=== PATIENT | male | born 1940 | race Caucasian/White ===

== ENCOUNTER 2019-03-07 13:00 | Emergency (ER) | payer OTHER ==
[~2019-03-07] VITALS: Ht 188 cm; Wt 108.9 kg
[~2019-03-07 13:00] MED LIST: MUCINEX DM1 TAB.SR . PO
[2019-03-07] MEDS ORDERED: NAPR500T14 PO (15:24)
[2019-03-07] MEDS ORDERED: SKELAXIN800 MG PO (15:24)
== END 2019-03-07 17:40 | disposition home or self-care (01) ==
LOC: ER
DX: M54.5 Low back pain (principal)

== ENCOUNTER 2023-02-22 10:52 | Emergency (ER) | payer OTHER ==
[~2023-02-22] VITALS: Ht 188 cm; Wt 99.8 kg
[~2023-02-22 10:52] MED LIST changes: +NAPR500T14 PO; +SKELAXIN800 MG PO
[2023-02-22] MEDS ORDERED: LIPITOR20 MG PO (11:39)
[2023-02-22] MEDS ORDERED: ADVIL DUAL ACT1 EACH PO (19:55)
[2023-02-22] MEDS ORDERED: TRAMADOL HCL E100 MG PO (19:55)
== END 2023-02-22 20:17 | disposition home or self-care (01) ==
LOC: ER 10:53
DX: S22.32XA Fracture of one rib, left side, initial encounter for closed fracture (principal); W19.XXXA Unspecified fall, initial encounter; Y93.9 Activity, unspecified; Y92.9 Unspecified place or not applicable; Y99.9 Unspecified external cause status

== ENCOUNTER 2023-02-24 15:36 | Emergency (ER) | payer OTHER ==
[~2023-02-24] VITALS: Ht 188 cm; Wt 99.8 kg
[~2023-02-24 15:36] MED LIST changes: +ADVIL DUAL ACT1 EACH PO; +LIPITOR20 MG PO; +TRAMADOL HCL E100 MG PO
[2023-02-24] MEDS ORDERED: LIPITOR20 MG PO (17:04)
[2023-02-24 22:51] LABS: HEMOGLOBIN 14.1 g/dL (13-16.00); MEAN CELL VOLUME 87.4 fL (80.0-100.00); MEAN CORPUSCULAR HGB CONC 34.4 g/dl (32.0-36.0); PLATELET COUNT 206 K/uL (150-450); RED BLOOD COUNT 4.69 M/uL (4.00-6.00); RED CELL DISTRIBUTION WIDTH 13.7 % (11.5-14.5)
[2023-02-24 23:14] LABS: INR 1.01; PARTIAL THROMBOPLASTIN TIME 29.4 SECONDS (22.0-34.0); PROTHROMBIN TIME 10.6 SECONDS (9.0-11.5)
[2023-02-24 23:16] LABS: CALCIUM 9.2 mg/dL (8.5-10.1); CREATININE SERUM 0.94 mg/dL (0.70-1.30); GFR 77.02; POTASSIUM 4.01 mEq/L (3.5-5.1)
[2023-02-24 23:55] LABS: PH,URINE 5.5 (5.0-8.0); URINE APPEARANCE Clear; URINE BILIRRUBIN Negative (NEGATIVE); URINE BLOOD Negative; URINE COLOR Dark Yellow; URINE GLUCOSE Negative (NEGATIVE); URINE LEUKOCYTE Trace; URINE NITRATE Negative
[2023-02-24 23:58] LABS: ABG PH 7.418 (7.35-7.45); ABG PO2 80.5 mmHg (80-100); ABG pCO2 39.9 mmHg (35-45); BASE EXCESS 0.7 mmol/l; BICARBONATE 25.2 mmol/l (23-25); Tco2 26.4 mmol/l
[2023-02-24 23:58] LABS: URINE BACTERIA 26.4 uL (0.0-1933); URINE EPITHELIAL CELLS 3.7 uL (0.0-38.8); URINE RBC 5.6 uL (0.0-20.8); URINE WBC 3.8 uL (0.0-23.2)
[2023-02-24 23:59] LABS: allen test SATISFACTORY; o2 21 %; puncture site RADIAL RIGHT
[2023-02-25 00:24] LABS: URINE PROTEIN 100 (NEGATIVE)
== END 2023-02-25 00:28 | disposition home or self-care (01) ==
LOC: ER 15:37
PROVIDERS: Nurse Practitioner Family
DX: S22.32XA Fracture of one rib, left side, initial encounter for closed fracture (principal); S27.898A Other injury of other specified intrathoracic organs, initial encounter; W19.XXXA Unspecified fall, initial encounter; Y93.89 Activity, other specified; Y92.89 Other specified places as the place of occurrence of the external cause; Y99.8 Other external cause status; Z20.822 Contact with and (suspected) exposure to COVID-19

== ENCOUNTER 2023-03-31 03:56 | Inpatient (IN) | payer OTHER ==
[~2023-03-31] VITALS: Ht 188 cm; Wt 95.3 kg
--- NOTE | 2023-03-31 04:15 | NUR ---
PTE. ALERTA Y ORIENTADO X3, EN AMBULANCIA, PARAMEDICOS REFIEREN PTE. EN LA NOCHE DE ESVIN PRESENTO VOMITOS, Y PRESIONES BAJAS. PTE. REFIERE QUE INGIRIO ALIMENTOS QUE SOSPECHA PUEDE SER LA CAUSA DE VOMITOS. SE MIDEN S/V Y SE UBICA.
[2023-03-31] MEDS ORDERED: FAMOtidine 10 MG/ML (4ML VIAL) IV STA (04:24)
[2023-03-31] MEDS ORDERED: ONDANSETRON HCL 2 MG/ML VIAL IV STA (04:24)
[2023-03-31] MEDS ORDERED: MEPERIDINE HCL/PF 25 MG/ML VIAL IM STA (04:25)
[2023-03-31] MEDS ORDERED: 0.9 % SODIUM CHLORIDE 500 ML IV STA (04:25)
--- NOTE | 2023-03-31 04:35 | NUR ---
SE ORIENTA PTE SOBRE TX MEDICO EL CUAL REFIERE ENTENDER.SE LE EXTRAEN MUESTRAS BAJO MEDIDAS ASEPTICAS,SE CANALIZA Y SE ADMINISTRA MEDICAMENTOS,SE NOTIFICA CT PENDIENTE.
[2023-03-31 05:15] LABS: HEMATOCRIT 49.8 % (39.0-48.0); HEMOGLOBIN 17.2 g/dL (13-16.00); MEAN CELL VOLUME 86.5 fL (80.0-100.00); MEAN CORPUSCULAR HEMOGLOBIN 29.8 pg (27.00-32.0); MEAN CORPUSCULAR HGB CONC 34.5 g/dl (32.0-36.0); PLATELET COUNT 217 K/uL (150-450); RED BLOOD COUNT 5.76 M/uL (4.00-6.00); RED CELL DISTRIBUTION WIDTH 13.3 % (11.5-14.5)
[2023-03-31 05:29] LABS: ALBUMIN 4.1 gm/dL (3.4-5.0); BILIRUBIN TOTAL 1.09 mg/dL (0.3-1.2); CALCIUM 9.9 mg/dL (8.5-10.1); CREATININE SERUM 1.05 mg/dL (0.70-1.30); GFR 67.79; GLOBULINA 3.8 G/DL (2.4-3.5); POTASSIUM 4.58 mEq/L (3.5-5.1); TOTAL PROTEIN 7.9 gm/dL (6.4-8.2)
--- NOTE | 2023-03-31 07:18 | NUR ---
SE RECIBE PTE ALERTA Y ORIENTADO X3 EN JESSICA BAJA CON BARANDAS ELEVDAS EN COMPANAI DE FAMILIAR. CANALIZADO EN BRAZO DERECHO CON ANGIO #18 PATENTE ML DE EDEMA Y ENROJECIMIENTO. RECIBIENDO .9NSS BAJANDO A 80ML/HR. PENDIENTE RESULTADO DE CT. SE ORIENTA A NOTIFICAR CAMBIOS.
--- NOTE | 2023-03-31 07:55 | NUR ---
SE ORIENTA A PTE A MANTENER NPO.
[2023-03-31 10:26] LABS: PH,URINE 7.5 (5.0-8.0); URINE APPEARANCE Clear; URINE BILIRRUBIN Negative (NEGATIVE); URINE BLOOD Negative; URINE COLOR Dark Yellow; URINE GLUCOSE Negative (NEGATIVE); URINE LEUKOCYTE Negative; URINE NITRATE Negative; URINE PROTEIN 30 (NEGATIVE)
--- NOTE | 2023-03-31 10:26 | NUR ---
MAXIMO BAILEY INSERTA NGT EN FOSA NASAL DERECHA Y SE CONECTA A SUCCION INTERMITENTE LINDA ORDEN MEDICA. SE OBSEVA RESIDUAL DE COLOR AMARILLO .
[2023-03-31 10:27] LABS: URINE BACTERIA 9.9 uL (0.0-1933); URINE RBC 2.7 uL (0.0-20.8)
[2023-03-31 10:30] LABS: URINE EPITHELIAL CELLS 0.9 uL (0.0-38.8); URINE WBC 0.7 uL (0.0-23.2)
[2023-03-31] MEDS ORDERED: INSULIN LISPRO 1,000 UNIT/10 ML UNITS SUBCUTANEO PRN (20:00)
[2023-03-31] MEDS ORDERED: DEXTROSE 5 % IN WATER 1,000 ML IV SCH (20:00)
[2023-03-31] MEDS ORDERED: DEXTROSE 50 % IN WATER 0.5 G/ML DISP.SYRIN IV PRN (20:00)
[2023-03-31] MEDS ORDERED: ONDANSETRON HCL 4 MG in 0.9 % SODIUM CHLORIDE 50 ML IV PRN (20:15)
[2023-03-31] MEDS ORDERED: KETOROLAC TROMETHAMINE 30 MG VIAL IV PRN (20:15)
[2023-03-31] MEDS ORDERED: ACETAMINOPHEN 500 MG GEL..CAP PO PRN (20:15)
[2023-03-31] MEDS ORDERED: hydrALAZINE HCL 20 MG VIAL IV PRN (20:15)
[2023-04-01] MEDS ORDERED: PIPERACILLIN/TAZOBACTAM SODIUM 3.375 GM in 0.9 % SODIUM CHLORIDE 100 ML IV SCH
[2023-04-01 05:08] LABS: HEMATOCRIT 45.3 % (39.0-48.0); HEMOGLOBIN 15.8 g/dL (13-16.00); MEAN CELL VOLUME 85.6 fL (80.0-100.00); MEAN CORPUSCULAR HEMOGLOBIN 29.8 pg (27.00-32.0); MEAN CORPUSCULAR HGB CONC 34.8 g/dl (32.0-36.0); PLATELET COUNT 223 K/uL (150-450); RED BLOOD COUNT 5.29 M/uL (4.00-6.00)
[2023-04-01 05:30] LABS: ALBUMIN 3.3 gm/dL (3.4-5.0); BILIRUBIN TOTAL 1.55 mg/dL (0.3-1.2); BILIRUBIN,CONJUGATED 0.43 mg/dL (0.0-0.2); BILIRUBIN,UNCONJUGATED 1.12 mg/dL (0.0-0.6); CHOL HDL RATIO 3.8 (0-5.0); CREATININE SERUM 0.92 mg/dL (0.70-1.30); GFR 78.96; GLOBULINA 2.9 G/DL (2.4-3.5); INR 1.08; POTASSIUM 3.96 mEq/L (3.5-5.1); PROTHROMBIN TIME 11.3 SECONDS (9.0-11.5); TOTAL PROTEIN 6.2 gm/dL (6.4-8.2)
[2023-04-01 05:31] LABS: C-REACTIVE PROTEIN 1.29 MG/DL (0.00-0.29)
[2023-04-01 06:03] LABS: ERYTHROCYTE SEDIMENTATION RATE 11 mm/hr
[2023-04-01] MEDS ORDERED: PANTOPRAZOLE SODIUM 40 MG in 0.9 % SODIUM CHLORIDE 8 ML IV PUSH SCH (09:00)
[2023-04-01] MEDS ORDERED: ATORVASTATIN CALCIUM 20 MG TABLET PO SCH (09:00)
[2023-04-01] MEDS ORDERED: ENOXAPARIN SODIUM 40 MG/0.4 ML SYRINGE SUBCUTANEO SCH (09:00)
[2023-04-01 10:04] LABS: PH,URINE 5.5 (5.0-8.0); URINE APPEARANCE Cloudy; URINE BILIRRUBIN Small (NEGATIVE); URINE BLOOD Negative; URINE COLOR Dark Yellow; URINE GLUCOSE Negative (NEGATIVE); URINE LEUKOCYTE Negative; URINE NITRATE Negative
[2023-04-01 10:08] LABS: URINE BACTERIA 41.5 uL (0.0-1933); URINE EPITHELIAL CELLS 2.3 uL (0.0-38.8); URINE RBC 8.1 uL (0.0-20.8); URINE WBC 1.8 uL (0.0-23.2)
[2023-04-01 11:08] LABS: URINE PROTEIN 100 (NEGATIVE)
[2023-04-01 11:09] LABS: URINE CRYSTALS MODERATE /HPF
[2023-04-04 12:43] LABS: HEMATOCRIT 43.5 % (39.0-48.0); HEMOGLOBIN 15.2 g/dL (13-16.00); MEAN CELL VOLUME 85.4 fL (80.0-100.00); MEAN CORPUSCULAR HEMOGLOBIN 29.9 pg (27.00-32.0); PLATELET COUNT 211 K/uL (150-450); RED BLOOD COUNT 5.09 M/uL (4.00-6.00); RED CELL DISTRIBUTION WIDTH 13.1 % (11.5-14.5)
[2023-04-04 13:36] LABS: ALBUMIN 3.2 gm/dL (3.4-5.0); BILIRUBIN TOTAL 0.85 mg/dL (0.3-1.2); CREATININE SERUM 0.92 mg/dL (0.70-1.30); GFR 78.96; GLOBULINA 3.3 G/DL (2.4-3.5); POTASSIUM 4.04 mEq/L (3.5-5.1); TOTAL PROTEIN 6.5 gm/dL (6.4-8.2)
== END 2023-04-06 11:25 | disposition home or self-care (01) | DRG 389 ==
LOC: ER 03:56 → MEDJ 20:52
PROVIDERS: Emergency Medicine; General Practice; ADMIT Internal Medicine; ATTEND Internal Medicine
PROC: BW21YZZ Computerized Tomography (CT Scan) of Abdomen and Pelvis using Other Contrast (ICD-10-PCS; principal; 2023-03-31)
PROC: BT04ZZZ Plain Radiography of Kidneys, Ureters and Bladder (ICD-10-PCS; 2023-04-03)
PROC: BT04ZZZ Plain Radiography of Kidneys, Ureters and Bladder (ICD-10-PCS; 2023-04-04)
DX: K56.600 Partial intestinal obstruction, unspecified as to cause (principal); J90 Pleural effusion, not elsewhere classified; E86.0 Dehydration; K74.69 Other cirrhosis of liver; Z20.822 Contact with and (suspected) exposure to COVID-19